=== PATIENT | male | born 1965 ===

== ENCOUNTER 2021-12-28 05:50 | Day surgery (SDC) | payer OTHER | END 2021-12-28 10:10 | disposition home or self-care (01) | LOC: AMB-ENDOS 05:50 | PROVIDERS: ATTEND Surgery | DX: D12.0 Benign neoplasm of cecum (principal); Z20.822 Contact with and (suspected) exposure to COVID-19; K57.30 Diverticulosis of large intestine without perforation or abscess without bleeding; I10 Essential (primary) hypertension ==

== ENCOUNTER 2022-10-15 11:01 | Inpatient (IN) | payer OTHER ==
[~2022-10-15] VITALS: Ht 167.6 cm; Wt 70.3 kg
[2022-10-15] MEDS ORDERED: PROTONIX20 MG PO (12:54)
[2022-10-15] MEDS ORDERED: IRBESAR PO (12:54)
[2022-10-22] MEDS ORDERED: NEURONTIN300 MG PO (11:36)
[2022-10-22] MEDS ORDERED: ACETAMINOPHEN500 M2 PO (11:36)
== END 2022-10-22 13:55 | disposition home or self-care (01) | DRG 330 ==
LOC: SURG 10-18 07:00 → SURH 10-18 11:45 → O/R 10-18 14:42 → SURG 10-18 19:59 → SURH 10-18 20:01
PROVIDERS: ADMIT Surgery; ATTEND Surgery
PROC: 0DTF4ZZ Resection of Right Large Intestine, Percutaneous Endoscopic Approach (ICD-10-PCS; principal; 2022-10-18 07:00)
DX: D12.0 Benign neoplasm of cecum (principal); K57.32 Diverticulitis of large intestine without perforation or abscess without bleeding; R59.0 Localized enlarged lymph nodes